=== PATIENT | female | born 1990 | race African-American/Black ===

== ENCOUNTER 2016-07-28 14:10 | Emergency (ER) | payer OTHER ==
[~2016-07-28 14:10] MED LIST: CIPRO PO; DIFLUCAN PO; METROGEL60 GM VAG; PRENATAL VITAMI1 TA3 PO; ZANTAC300 MG PO
[2016-07-28 15:50] LABS: URINE SOURCE CLEAN CATCH
[2016-07-28 16:32] LABS: URINE APPEARANCE CLEAR; URINE BILIRUBIN NEG (NEG); URINE BLOOD NEG (NEG); URINE COLOR YELLOW; URINE GLUCOSE NEG (NEG); URINE KETONE NEG (NEG); URINE LEUKOCYTE ESTERASE TRACE (NEG); URINE NITRATE NEG (NEG); URINE PROTEIN NEG (NEG); URINE SPECIFIC GRAVITY 1.015 (1.003-1.035); URINE UROBILINOGEN 0.2 MG/DL (NEG)
[2016-07-28 16:35] LABS: CULTURE INDICATED? YES; U HYALINE CASTS AUWI 0-2 /[LPF]; URINE BACTERIA AUWI 1+ (NEGATIVE); URINE SQUAMOUS EPITHELIAL CELL OCC /[HPF]
[2016-08-01 15:44] LABS: CHLAMYDIA TRACH Not Detected (Not Detected); N GONOR Not Detected (Not Detected)
== END 2016-07-28 16:51 | disposition home or self-care (01) ==
LOC: CFTX 14:10
PROVIDERS: Nurse Practitioner
DX: N76.0 Acute vaginitis (principal); K21.9 Gastro-esophageal reflux disease without esophagitis; F17.290 Nicotine dependence, other tobacco product, uncomplicated; Z98.890 Other specified postprocedural states
CPT/HCPCS: 81003; 84703; 87086; 87491; 87591; 87808; 87905; 99284

== ENCOUNTER 2016-11-07 23:39 | Emergency (ER) | payer OTHER | END 2016-11-08 00:15 | disposition left against medical advice (07) | LOC: CED 23:39 | DX: Z53.21 Procedure and treatment not carried out due to patient leaving prior to being seen by health care provider (principal) ==